=== PATIENT | male | born 1970 | race Caucasian/White ===

== ENCOUNTER 2017-02-26 06:29 | Day surgery (SDC) | payer BC ==
[~2017-02-26 06:29] MED LIST: Buffered Lidocaine 0.9% SYRIN* 5 ML/SYR SYRINGE INTRADERM ONE; Famotidine IV* 10 MG/ML 2 ML (20 mg) IV ONE
[2017-02-26] MEDS ORDERED: Famotidine IV* 10 MG/ML 2 ML (20 mg) ONE (06:32)
[2017-02-26] MEDS ORDERED: ceFAZolin 2 GM PREMIX(*) 2 GM/50 ML BAG IVPB ONE (06:32)
[2017-02-26] MEDS ORDERED: Buffered Lidocaine 0.9% SYRIN* 5 ML/SYR SYRINGE ONE (06:33)
[2017-02-26] MEDS ORDERED: Morphine INJ* 10 MG/ML 1 ML SYRINGE ONE (06:59)
[2017-02-26] MEDS ORDERED: fentaNYL* 50 MCG/ML 2 ML VIAL (100 MCG VIAL) ONE ×2 (06:59→09:57)
[2017-02-26] MEDS ORDERED: Atracurium* 10 MG/ML 10 ML VIAL ONE (06:59)
[2017-02-26] MEDS ORDERED: KETAMINE HCL* 50 MG/ML 10 ML VIAL ONE (07:00)
[2017-02-26] MEDS ORDERED: Midazolam* 1 MG/ML 5 ML VIAL (5 MG) ONE (07:00)
[2017-02-26] MEDS ORDERED: Bupivacaine 0.25% W/EPI* 50 ML VIAL ONE (07:06)
[2017-02-26] MEDS ORDERED: Glycopyrrolate IV* 0.2 MG/ML 1 ML VIAL ONE (09:03)
[2017-02-26] MEDS ORDERED: Propofol* 10 MG/ML 20 ML BTL IV PUSH ONE (09:03)
[2017-02-26] MEDS ORDERED: Neostigmine Methylsulfate* 2 MG/2 ML SYRINGE ONE (09:03)
[2017-02-26] MEDS ORDERED: Ondansetron INJ* 2 MG/ML VIAL ONE (09:03)
[2017-02-26] MEDS ORDERED: Dexamethasone IV* 4 MG/ML 1 ML (4 MG) ONE (09:03)
[2017-02-26] MEDS ORDERED: Ketorolac INJ* 30 MG/ML 1 ML VIAL ONE ×2 (09:03→09:04)
[2017-02-26] MEDS ORDERED: PROCHLORPERAZINE INJ 5 MG/ML 2 ML VIAL ONE (09:03)
[2017-02-26] MEDS ORDERED: Lidocaine 2% PF * 5 ML VIAL ONE (09:03)
[2017-02-26] MEDS ORDERED: PROCHLORPERAZINE INJ 5 MG/ML 2 ML VIAL IV PRN (09:04)
[2017-02-26] MEDS ORDERED: fentaNYL* 50 MCG/ML 2 ML VIAL (100 MCG VIAL) IV PRN (09:04)
[2017-02-26] MEDS ORDERED: Morphine INJ* 2 MG/ML 1 ML SYRINGE IV PRN (09:04)
[2017-02-26] MEDS ORDERED: Scopolamine 1.5 mg* PATCH TRANSDERM PRN (09:04)
[2017-02-26] MEDS ORDERED: oxyCODONE/Acetamin 5/325 MG* TAB PO PRN (09:32)
[2017-02-26] MEDS ORDERED: oxyCODONE/Acetamin 5/325 MG* TAB ONE ×2 (10:09→11:02)
[2017-02-26] MEDS: oxyCODONE/Acetamin 5/325 MG* TAB PO PRN ×2 (10:10→11:18)
[2017-02-26 10:51] VITALS: BP 142/78
--- NOTE | 2017-02-27 15:10 | OP ---
DATE OF OPERATION: 02/26/17 [facility] DATE OF : 74 SURGEON: Harris Wolf MD CORPORATE LEGAL SECRETARY: CASSANDRA Nguyen ANESTHESIOLOGIST: Dr. Bravo ANESTHESIA: General with local. PRE-OP DIAGNOSIS: Left inguinal hernia. POST-OP DIAGNOSIS: Left indirect inguinal hernia. OPERATIVE PROCEDURE: Totally extraperitoneal laparoscopic repair of the left indirect inguinal hernia using a Bard 3DMax mesh, knitted polyester preformed mesh, large size. ESTIMATED BLOOD LOSS: Minimal. SPECIMEN: None. WOUND CLASSIFICATION: I. COMPLICATIONS: None. DRAINS: None. DESCRIPTION OF PROCEDURE: Written informed consent was obtained, the left groin was marked with indelible ink, and preoperative antibiotics were administered. The patient was taken to the operating room and placed in the supine position. General anesthesia was administered and sequential compression devices and warming blanket were applied. Kennedy catheter was inserted. Both groins and abdomen were prepped and draped in the usual sterile fashion. Time-out verification was completed. Next, 0.5% Marcaine was infiltrated just below the umbilicus slightly to the right. Transverse incision was made and carried down to the anterior fascia just off to the right of midline. This was divided sharply and the underlying rectus muscle was retracted laterally and the posterior sheath was identified. This space was then developed using a Jacquie and then subsequently a finger inferiorly down the midline. The Spacemaker balloon was then inserted and down carefully till it apposed and contacted the pubic tubercle. Next, the Spacemaker balloon was blown up with almost 20 squeezes of the handball to develop the preperitoneal space. Once this was complete, the balloon was deflated and removed and a 12-mm blunt port was inserted into the extraperitoneal space and this was insufflated to 12 mmHg. The patient was placed in Trendelenburg position. Two 5-mm ports were placed in the midline, each about 3 fingerbreadths below each other and along the midline inferiorly. Using a blunt dissection, I was able to identify the pubic tubercle immediately and the conjoint tendon to the left. The patient had a previous open right inguinal hernia repair and this site did not develop quite as nicely, but I did not pursue further dissection other than slightly to the right of the pubic tubercle. Once I identified the Julio Cesar's ligament inferiorly, it did not appear to be there was a direct space. The epigastric vessels were identified in their usual position running up to the anterior abdominal wall. The lateral musculature was identified. There was some adventitial tissue, was taken down to expose the anterior abdominal wall and the iliotibial tract. Next, with care working laterally to medial, I was able to identify the peritoneal reflection and this was from the retroperitoneum and also the cord structures as we came closer to the internal ring. This was obvious this was an indirect inguina hernia sac that extended into the internal ring and this was reduced carefully. The spermatic cord and its contents were identified as well as the vas deferens. There is tracking off immediately and this was from the indirect sac to prevent injury from these cesar structures. Once the peritoneum had been reflected back cranially, once again I assured myself that there was no evidence of a direct space hernia. The anterior abdominal wall was nicely exposed. Next, a large 3DMax Mesh was then placed into this space and was tacked to the Julio Cesar's ligament with the capture device in 2 places with generous overlap of the midline covering the anterior abdominal wall as well as care to prevent and make sure that the reflected peritoneum was well cranial to the mesh over the retroperitoneum. A single capture tack was placed lateral to the epigastric as well as to the anterior abdominal wall and also medial to assure myself the mesh sat up flush with the wall. Once we had assured that the mesh covered the direct, indirect, and femoral spaces nicely, hemostasis was assured. The space was deflated under direct vision using several instruments to hold the mesh into place and be covered by the peritoneum. All ports were then removed and the space was completely evacuated of carbon dioxide. The anterior fascia was closed with two interrupted 0 Polysorb suture. Three skin incisions at the skin level were closed with 4-0 Polysorb suture. Steri- Strips and sterile dressings were applied. The patient tolerated the procedure well and was taken to the recovery room in stable condition. [id number]/[facility] #: [id number] JORGE
[2017-03-01] MEDS ORDERED: Scopolomine PATCH Remove* 1 NOTE MISC PATCH OFF ONE (09:07)
== END 2017-02-26 11:35 | disposition home or self-care (01) ==
LOC: OR 06:29
PROVIDERS: ATTEND Surgery
DX: K40.90 Unilateral inguinal hernia, without obstruction or gangrene, not specified as recurrent (principal); Z87.891 Personal history of nicotine dependence
CPT/HCPCS: A9270-GY; C1781; J0690; J0780; J1100; J1885; J2250; J2270; J2405; J2704; J3010

== ENCOUNTER 2017-09-18 07:27 | Emergency (ER) | payer BC ==
[2017-09-18 07:52] VITALS: BP 141/89
--- NOTE | 2017-09-18 08:07 | UC ---
Respiratory Complaint HPI - HPI Summary HPI Summary: cough x 5 days cough is dry, harsh , worse at night, no fever, no chills, + chest tightness and sob no nasal congestion , no sore throat , - History of Current Complaint Chief Complaint: UCRespiratory Stated Complaint: COUGH,CHEST CONGESTION Time Seen by Provider: 09/18/17 07:58 Hx Obtained From: Patient Onset/Duration: Gradual Onset, Lasting Days - 5, Still Present Timing: Constant Severity Initially: Moderate Severity Currently: Moderate Pain Intensity: 0 Character: Cough: Nonproductive Aggravating Factors: Exertion, Deep Breaths Alleviating Factors: Nothing Associated Signs And Symptoms: Positive: Dyspnea, Wheezing. Negative: Fever, Chills, Pleuritic Chest Pain, Hemoptysis, Dizziness, Calf Pain, Calf Swelling, URI, Nasal Congestion, Hoarseness, Sinus Discomfort - Allergies/Home Medications Allergies/Adverse Reactions: Allergies Allergy/AdvReac Type Severity Reaction Status Date / Time No Known Allergies Allergy Verified 09/18/17 07:46 PMH/Surg Hx/FS Hx/Imm Hx Previously Healthy: Yes - Surgical History Surgical History: Yes Surgery Procedure, Year, and Place: TEENAGER WISDOM TEETH EXTRACTED, [facility]. 01/2016, right hernia, [facility]. [place], 12/2016, [facility] [place] - Family History Known Family History: Negative: Diabetes - Social History Alcohol Use: Daily Alcohol Amount: NIGHTLY GLASS OF WINE Substance Use Type: None Smoking Status (MU): Former Smoker Type: Cigarettes Amount Used/How Often: 3/4 pack a day for 5 years Have You Smoked in the Last Year: No When Did the Patient Quit Smoking/Using Tobacco: 1995 Review of Systems Constitutional: Negative Skin: Negative Eyes: Negative ENT: Negative Respiratory: Shortness Of Breath, Cough Cardiovascular: Negative Gastrointestinal: Negative Is Patient Immunocompromised?: No All Other Systems Reviewed And Are Negative: Yes Physical Exam Triage Information Reviewed: Yes Appearance: Well-Appearing, No Pain Distress, Well-Nourished Vital Signs: Initial Vital Signs Temp 98.4 F 09/18/17 07:47 Pulse 70 09/18/17 07:47 Resp 16 09/18/17 07:47 BP 141/89 09/18/17 07:47 Pulse Ox 100 09/18/17 07:47 Vital Signs Reviewed: Yes Eyes: Positive: Conjunctiva Clear ENT: Positive: Normal ENT inspection, Hearing grossly normal, Pharynx normal Neck exam: Normal Neck: Positive: Supple, Nontender, No Lymphadenopathy Respiratory: Positive: Chest non-tender, Decreased breath sounds. Negative: Crackles, Wheezing Cardiovascular: Positive: RRR, No Murmur, Pulses Normal Abdominal Exam: Normal Skin Exam: Normal UC Diagnostic Evaluation - Laboratory O2 Sat by Pulse Oximetry: 100 Respiratory Course/Dx - Differential Dx/Diagnosis Provider Diagnoses: bronchitis Discharge - Discharge Plan Condition: Stable Disposition: HOME Prescriptions: Albuterol HFA INHALER* [Ventolin HFA Inhaler*] 1 - 2 puff INH Q6H PRN #1 mdi PRN Reason: Shortness Of Breath Benzonatate CAP* [Tessalon 100 MG CAP*] 100 mg PO TID #21 cap predniSONE TAB* [Deltasone TAB*] 40 mg PO DAILY #10 tab Patient Education Materials: Acute Bronchitis (ED) Referrals: Monserrat Todd NP [Primary Care Provider] - 7 Days
== END 2017-09-18 08:20 | disposition home or self-care (01) ==
LOC: UCCORT 07:27
DX: J40 Bronchitis, not specified as acute or chronic (principal); Z87.891 Personal history of nicotine dependence
CPT/HCPCS: 99212; G0463